=== PATIENT | male | born 1975 | race Caucasian/White ===

== ENCOUNTER → 2016-03-31 | Outpatient (CLI) | payer OTHER ==
--- NOTE | 2016-03-31 21:01 | REP ---
Clinical: Pain. Technique: AP, lateral, bilateral oblique, and coned-down views. Findings: Alignment and lordosis maintained. Moderate degenerative disc disease at the L5-S1 level includes endplate sclerosis and disc space narrowing with hypertrophic facet changes. Mild degenerative changes noted throughout the remainder of the lower thoracic and lumbar spine including endplate sclerosis and subtle marginal spurring. No acute fracture / compression injury or subluxation. Impression: Focal degenerative changes at the L5-S1 level with relatively age-related changes throughout the remainder of the examination. Signed by Pedro Barba MD 03/31/2016 08:53 P
== END ==
LOC: M LRY 15:28
PROVIDERS: ATTEND Physician Assistant
DX: M54.41 Lumbago with sciatica, right side (principal)

== ENCOUNTER → 2016-03-31 | Outpatient (REF) | payer OTHER ==
[2016-03-31 21:40] LABS: ALBUMIN 3.9 GM/DL (3.2-5.2); ALBUMIN/GLOBULIN RATIO 1.22 (1.00-1.93); ALKALINE PHOSPHATASE 80 U/L (45-117); ALT/SGPT 39 U/L (12-78); ANION GAP 6 MEQ/L (8-16); AST/SGOT 13 U/L (15-37); BILIRUBIN,TOTAL 0.8 MG/DL (0.2-1.0); BLOOD UREA NITROGEN 9 MG/DL (7-18); CALCIUM LEVEL 9.3 MG/DL (8.5-10.1); CARBON DIOXIDE LEVEL 27 MEQ/L (21-32); CHLORIDE LEVEL 108 MEQ/L (98-107); CHOLESTEROL LEVEL 179 MG/DL (<200); GLOMERULAR FILTRATION RATE > 60.0 (>60); GLUCOSE, FASTING 88 MG/DL (70-105); POTASSIUM SERUM 4.2 MEQ/L (3.5-5.1); SODIUM LEVEL 141 MEQ/L (136-145); TOTAL PROTEIN 7.1 GM/DL (6.4-8.2); TRIGLYCERIDES LEVEL 291 MG/DL (<150)
== END ==
LOC: M SFHCLERA 15:24
PROVIDERS: ATTEND Physician Assistant
DX: E78.2 Mixed hyperlipidemia (principal)

== ENCOUNTER 2016-05-09 07:02 | Emergency (ER) | payer OTHER ==
[2016-05-09] MEDS ORDERED: NAPROXEN 250 MG TAB As Ordered ONE (07:34)
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
--- NOTE | 2016-05-09 09:49 | REP ---
LUMBAR SPINE COMPLETE: 05/09/2016. Comparison: 03/31/2016. Clinical history: Back pain, trauma. Five views are provided. There is disc space narrowing at the L5-S1 level with anterior and posterior osteophytes. The other disc space heights are maintained except slight narrowing at L1-2. All vertebral body heights are maintained. There is no compression deformity or destructive lesion. I see no spondylolysis or spondylolisthesis. Some minor hypertrophic facet changes at L5-S1. Impression: 1. Degenerative disc and facet arthritic changes at L5-S1. Minimal disc space narrowing at L1-2 but no compression deformity, spondylolysis or spondylolisthesis. Signed by David Valera MD 05/09/2016 07:27 P
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
== END 2016-05-09 09:02 | disposition home or self-care (01) ==
LOC: M ED 07:02
DX: S39.012A Strain of muscle, fascia and tendon of lower back, initial encounter (principal); V49.40XA Driver injured in collision with unspecified motor vehicles in traffic accident, initial encounter; Y92.410 Unspecified street and highway as the place of occurrence of the external cause; Y93.89 Activity, other specified; Y99.8 Other external cause status; E78.00 Pure hypercholesterolemia, unspecified; I10 Essential (primary) hypertension; J44.9 Chronic obstructive pulmonary disease, unspecified; F17.210 Nicotine dependence, cigarettes, uncomplicated; Z79.899 Other long term (current) drug therapy; Z88.2 Allergy status to sulfonamides

== ENCOUNTER 2016-12-19 17:52 | Emergency (ER) | payer OTHER ==
[~2016-12-19] VITALS: Ht 160 cm; Wt 84.1 kg
[2016-12-19 17:53] VITALS: BP 148/88
[2016-12-19] MEDS ORDERED: ASMA16.7 INH (18:04)
[2016-12-19] MEDS ORDERED: ALBU17IN (18:04)
== END 2016-12-19 19:03 | disposition home or self-care (01) ==
LOC: M ED 17:52
DX: S61.216A Laceration without foreign body of right little finger without damage to nail, initial encounter (principal); Z72.0 Tobacco use; W29.0XXA Contact with powered kitchen appliance, initial encounter; Y92.090 Kitchen in other non-institutional residence as the place of occurrence of the external cause; Y93.G3 Activity, cooking and baking; Y99.9 Unspecified external cause status

== ENCOUNTER → 2022-06-30 | Outpatient (CLI) | payer OTHER ==
[~2022-06-30] MED LIST: ALBU17IN; MOME13HF4 INH
== END ==
LOC: M SLEEP HO 10:54
PROVIDERS: ATTEND Internal Medicine Pulmonary Disease
DX: G47.33 Obstructive sleep apnea (adult) (pediatric) (principal)

== ENCOUNTER → 2023-04-21 | Outpatient (REF) | LOC: M PLAIMG 09:17 | PROVIDERS: ATTEND Internal Medicine | DX: R52 Pain, unspecified (principal) ==

== ENCOUNTER → 2023-08-06 | Outpatient (CLI) | payer OTHER | LOC: M RAD 09:25 | PROVIDERS: ATTEND Internal Medicine Pulmonary Disease | DX: Z12.2 Encounter for screening for malignant neoplasm of respiratory organs (principal); F17.218 Nicotine dependence, cigarettes, with other nicotine-induced disorders ==

== ENCOUNTER → 2023-11-08 | Outpatient (CLI) | payer OTHER | LOC: M RAD 12:37 | PROVIDERS: ATTEND Internal Medicine Pulmonary Disease | DX: R91.8 Other nonspecific abnormal finding of lung field (principal); J43.9 Emphysema, unspecified; J84.10 Pulmonary fibrosis, unspecified ==

== ENCOUNTER → 2024-01-04 | Outpatient (REF) | LOC: M PLAIMG 11:27 | PROVIDERS: ATTEND Internal Medicine | DX: M25.561 Pain in right knee (principal); M47.817 Spondylosis without myelopathy or radiculopathy, lumbosacral region ==

== ENCOUNTER → 2025-01-24 | Outpatient (CLI) | payer OTHER | LOC: M RAD 09:43 | PROVIDERS: ATTEND Internal Medicine Pulmonary Disease | DX: Z12.2 Encounter for screening for malignant neoplasm of respiratory organs (principal); F17.218 Nicotine dependence, cigarettes, with other nicotine-induced disorders; R59.0 Localized enlarged lymph nodes ==